=== PATIENT | male | born 1950 | race Caucasian/White ===

== ENCOUNTER 2020-08-05 19:18 | Emergency (ER) | payer MEDICARE, OTHER ==
[~2020-08-05] VITALS: Ht 177.8 cm; Wt 90.8 kg
--- NOTE | 2020-08-05 19:42 | ED Upper Extremity ---
General Chief Complaint: Laceration Stated Complaint: RT HAND LAC Nursing Triage Note: pt washing shelton jar causing laceration between 4th and 5th fingers Nursing Sepsis Screen: No Definite Risk Source: patient History of Present Illness Date Seen by Provider: Aug 05, 2020 Time Seen by Provider: 19:20 Initial Comments 69-year-old male daily with complaints of laceration to his right hand. He was washing a shelton jar and had stuck his hand into the chart. Apparently there was a chip in the room and cut into the webbing between his pinky and ring finger. He denies any numbness or decreased sensation in those fingers. He has normal range of motion. He is unsure of the last tetanus booster. He immediately applied pressure to help control the bleeding. Onset: just prior to arrival Severity: mild Pain/Injury Location: right other (webbing between 4th and 5th fingers ) Method of Injury: incised (cut on lip of shelton jar as he was washing it) Allergies and Home Medications Allergies Coded Allergies: No Known Drug Allergies (Unverified , 08/05/20) Patient Home Medication List Home Medication List Reviewed: Yes Review of Systems Constitutional: No chills, No fever EENTM: no symptoms reported Respiratory: no symptoms reported Cardiovascular: no symptoms reported Gastrointestinal: no symptoms reported Genitourinary: no symptoms reported Musculoskeletal: see HPI Skin: see HPI Psychiatric/Neurological: See HPI Past [id number] Hx Past Med/Social Hx: Reviewed Nursing Past Med/Soc Hx Patient Social History Alcohol Use: Denies Use Smoking Status: Never a Smoker 2nd Hand Smoke Exposure: No Recent Infectious Disease Expo: No Recent Hopitalizations: No Seasonal Allergies Seasonal Allergies: No Past Medical History Surgeries: Yes Coronary Stent Respiratory: No Cardiac: No Neurological: No Genitourinary: No Gastrointestinal: No Musculoskeletal: No Endocrine: No HEENT: No Cancer: No Psychosocial: No Integumentary: No Blood Disorders: No Physical Exam Vital Signs Vital Signs - First Documented 08/05/20 08/05/20 19:34 20:34 Temp 36.8 Pulse 56 Resp 16 B/P (MAP) 164/83 (110) Pulse Ox 100 O2 Delivery Room Air Capillary Refill : Less Than 3 Seconds Height, Weight, BMI Height: '" Weight: lbs. oz. kg; 28.00 BMI Method: General Appearance: WD/WN, no apparent distress Cardiovascular: normal peripheral pulses Hand: normal ROM, laceration (on right hand webbing between 4th and 5th fingers), soft tissue tenderness Neurologic/Tendon: normal sensation, normal motor functions, normal tendon functions Neurologic/Psychiatric: alert, normal mood/affect, oriented x 3 Skin: normal color, warm/dry Procedures/Interventions Wound Location: Upper Extremities (right hand webbing between 4th and 5th fingers) Wound Length (cm): 2.2 Wound's Depth, Shape: linear, sub Q Wound Explored: clean Anesthesia: 1% Lidocaine Volume Anesthetic (ccs): 9 Suture: Ethlion Suture Size: 4-0 Number of Sutures: 5 Layer Closure?: 1 Sterile Dressing Applied?: Yes Progress After obtaining verbal informed consent the wound was removed from the sterile water and chlorhexidine soap that he had been soaking in. Then using 1% plain lidocaine a total of 9 mL was infiltrated in the wound. The wound was then further scrubbed with chlorhexidine soap and explored and no foreign bodies were seen or palpated. The wound was then covered with sterile drapes. Then using 4- 0 Ethilon a total of 5 simple interrupted stitches were placed to approximate the wound edges. Patient tolerated procedure well without any immediate complications. Then a sterile dressing with antibiotic ointment and nonstick gauze was applied by the nurse. He was counseled on follow-up and return preca utions. Advised to have the stitches out and approximately 2 weeks. Return or be seen sooner if having concerns for infection. Progress/Results/Core Measures Results/Orders My Orders Orders - MOLINA IBARRA MD Lidocaine 1% Inj 20 Ml (Xylocaine 1% Inj (08/05/20 19:45) Dipht,Pertuss(Acell),Tet Adult (Boostrix (08/05/20 19:45) Wound Dressing-Ed (08/05/20 20:22) Medications Given in ED Current Medications Medications Dose Ordered Sig/Jarrett Route Start Time Stop Time Status Last Admin Dose Admin Diphtheria/ Tetanus/Acell Pertussis 0.5 ml ONCE ONCE IM 08/05/20 19:45 08/05/20 19:46 DC 08/05/20 20:31 0.5 ML Lidocaine HCl 20 ml ONCE ONCE INJ 08/05/20 19:45 08/05/20 19:46 DC 08/05/20 20:31 20 ML Vital Signs/I&O 08/05/20 08/05/20 19:34 20:34 Temp 36.8 Pulse 56 56 Resp 16 16 B/P (MAP) 164/83 (110) 164/83 Pulse Ox 100 O2 Delivery Room Air Room Air Blood Pressure Mean: 110 Progress Progress Note : Progress Note update tetanus booster. clean and repair laceration with 4-0 ethilon stitches. Counseled on follow up and return precautions. Departure Impression Primary Impression: Laceration of right hand without complication, excluding fingers Qualified Codes: S61.411A - Laceration without foreign body of right hand, initial encounter Disposition: HOME, SELF-CARE Condition: Stable Departure-Patient Inst. Decision time for Depature: 20:24 Referrals: SONA WALSH MD (PCP/Family) Primary Care Physician Patient Instructions: Laceration Repair With Stitches ED Add. Discharge Instructions: Keep wound clean and dry for first 24 hours. Then may wash with soap and water but do not soak it. May apply antibiotic ointment 2-3 times a day and cover with dressing if it is going to get dirty. Have stitches removed in about 2 weeks. Return or be seen sooner if concerns for infection such as redness streaking up your hand, swelling and pain, pus draining from the wound, fever over 101 F All discharge instructions reviewed with patient and/or family. Voiced understanding. Images Extremities-Upper 1 - Laceration (2.2 cm laceration extending between the webbing between 4th and 5th fingers of right hand) MOLINA IBARRA MD Aug 05, 2020 19:42
[2020-08-05] MEDS ORDERED: LIDOCAINE 1% INJ 20 ML 20 ML VIAL INJ ONE (19:45)
[2020-08-05] MEDS ORDERED: TETANUS,DIPTH,PERTUSS P/F (BOOSTRIX) 0.5 ML VIAL IM ONE (19:45)
[2020-08-05 20:34] VITALS: BP 164/83
== END 2020-08-05 20:34 | disposition home or self-care (01) ==
LOC: ER FS 19:20
DX: S61.411A Laceration without foreign body of right hand, initial encounter (principal); Z95.5 Presence of coronary angioplasty implant and graft; Z23 Encounter for immunization; W25.XXXA Contact with sharp glass, initial encounter
CPT/HCPCS: 12042; 99284; A6223; 90715